=== PATIENT | male | born 1995 | race Caucasian/White ===

== ENCOUNTER 2018-08-16 09:12 | Emergency (ER) | payer OTHER ==
--- NOTE | 2018-08-16 09:25 | EDPHY ---
H & P Stated Complaint: L wrist vs black ice-yesterday Time Seen by Provider: 08/16/18 09:24 HPI/ROS: HPI: This is a 22-year-old male who presents with Chief Complaint: Left wrist injury on ice yesterday Location: Left wrist Quality: Injury Duration: Yesterday Signs and Symptoms: No bleeding, no radiation, no numbness, no weakness, no tingling, no incontinence,+ decreased range of motion, no swelling, + pain, no fever, + deformity Timing: Acute Severity: Moderate Context: Patient reports that he was drinking alcohol with his friends yesterday evening in [place] when he was running for the bus while wearing high heels and slipped on ice at the bus stop. He reports that he landed on the ulnar aspect of his wrist. He felt immediate, constant, moderate pain on the radial aspect of his left wrist. Patient is right-hand dominant. Patient reports that he iced it for bit late last night but has not iced it this morning. When he woke up he noted an obvious deformity in his left wrist with decreased range of motion. He reports that the pain shoots up into his left elbow. He denies any numbness. Denies LOC/head injury/neck pain/dizziness/ nausea/vomiting/amnesia. Modifying Factors: Ice Comment: ROS: A comprehensive 10 system review of systems is otherwise negative aside from elements mentioned in the history of present illness. MEDICAL/SURGICAL/SOCIAL HISTORY: Medical history: Generally healthy. Does not take any regular medications. Surgical history: Denies Social history: Tobacco and marijuana user. CONSTITUTIONAL: Well-developed, well-nourished young adult white male awake and alert, no obvious distress HEENT: Atraumatic and normocephalic. NECK: supple, no midline tenderness, flexion 45 degrees, extension 45 degrees, right and left lateral flexion 45 degrees. No meningismus. Cardiovascular: Normal S1/S2, regular rate, regular rhythm, without murmur rub or gallop. PULMONARY/CHEST: Symmetrical and nontender. Clear to auscultation bilaterally. Good air movement. No accessory muscle usage. ABDOMEN: Soft, nondistended, nontender. BACK: No midline tenderness, no paraspinous spasm, deep tendon reflexes 2/2 EXTREMITIES: 2/2 pulses, strength 5/5, left WRIST: Obvious deformity and deviation to the dorsal aspect; Extension to 30, flexion to 20, radial deviation to 10 degree, ulnar deviation to 10, no scaphoid tenderness, no tenderness over ulnar styloid, moderate tenderness over radial styloid. Able to wiggle all 5 fingers without difficulty. Left elbow has full range of motion. DIP/PIP/MCP flexion/extension intact with good light touch sensation. no deformities, no clubbing, no cyanosis or edema. NEUROLOGICAL: no focal neuro deficits. GCS 15. Light touch sensation intact. SKIN: Warm and dry, no erythema. no rash. Good capillary refill. Source: Patient Exam Limitations: No limitations - Personal History Current Tetanus/Diphtheria Vaccine: Unsure Current Tetanus Diphtheria and Acellular Pertussis (TDAP): Unsure - Medical/Surgical History Hx Asthma: No Hx Chronic Respiratory Disease: No Hx Diabetes: No Hx Cardiac Disease: No Hx Renal Disease: No Hx Cirrhosis: No Hx Alcoholism: No Hx HIV/AIDS: No Hx Splenectomy or Spleen Trauma: No Other PMH: denies, marijuana - Social History Smoking Status: Current some day smoker Constitutional: Initial Vital Signs Temperature (C) 36.7 C 08/16/18 09:15 Heart Rate 92 08/16/18 09:15 Respiratory Rate 16 08/16/18 09:15 Blood Pressure 128/63 H 08/16/18 09:15 O2 Sat (%) 97 08/16/18 09:15 O2 Delivery Mode Room Air Allergies/Adverse Reactions: codeine Allergy (Intermediate, Verified 08/16/18 09:19) Dyspnea Home Medications: Medication Instructions Recorded oxyCODONE/APAP 5/325 [Percocet 1 - 2 tab PO Q4H PRN #10 tab 08/16/18 5/325 (*)] Medical Decision Making - Diagnostics Imaging Results: Imaging Impressions Wrist X-Ray 08/16/18 09:22 Impression: Comminuted, displaced and angulated fracture of the distal left radius. Procedures: Procedure: Dislocation reduction. The dislocation of the left wrist was reduced using counter traction technique without complications. Post reduction the patient's neurovascular exam is normal. Post reduction CAM x-ray demonstrates reduction of the joint to the anatomic position. The procedure was performed by myself. Procedure: Splint placement. A sugar-tong Ortho Glass splint and sling were applied by the Emergency Room satellite tv technician and myself. After application of the splint I returned and re- examined the patient. The splint was adequately immobilizing the joint and distal to the splint the patient's circulation and sensation was intact. ED Course/Re-evaluation: Vital signs reviewed and stable upon arrival. Left wrist x-ray ordered and my read via bedside imaging shows comminuted, displaced radial fracture. Given Percocet, ibuprofen and ice pack applied Left wrist reduced and placed in sugar-tong Ortho Glass splint with sling Orthopedic follow-up and prescription for Percocet No signs of neurovascular compromise/tenting of skin/compartment syndrome/ extremities and joints examined above and below area of concern and are neurovascularly intact. This patient was seen under the supervision of my secondary supervising physician. I evaluated care for this patient independently. Discussed this patient with Dr. Harley who did not see the patient. Differential Diagnosis: Differential diagnosis includes but is not limited to scaphoid fracture, radial fracture, ulnar fracture, sprain, contusion, nerve injury. - Data Points Medications Given: Discontinued Medications Ibuprofen (Motrin) 800 mg PO EDNOW ONE Stop: 08/16/18 09:31 Last Admin: 08/16/18 09:32 Dose: 800 mg Oxycodone/Acetaminophen (Percocet 5/325) 1 tab PO EDNOW ONE Stop: 08/16/18 09:31 Last Admin: 08/16/18 09:32 Dose: 1 tab Departure - Departure Disposition: Home, Routine, Self-Care Clinical Impression: Closed fracture of distal end of left radius Qualifiers: Encounter type: initial encounter Fracture morphology: unspecified fracture morphology Qualified Code(s): S52.502A - Unspecified fracture of the lower end of left radius, initial encounter for closed fracture Condition: Good Instructions: Wrist Fracture in Adults (ED), How to Use a Sling (ED), ORIF of a Wrist Fracture (DC) Additional Instructions: Keep the splint dry and in place until seen by Orthopedics. You sling while out of bed to aid comfort. Take Tylenol 650 mg every 4 hours and/or Ibuprofen 600 mg every 8 hours with food as needed for pain. Use Percocet every 6 hours as needed for severe/break through pain. Do not use Tylenol and Percocet concomitantly. Apply ice for 30 minutes at a time; 2-3 times per day for the next 1-2 days. Follow up with Orthopedics in 5-7 days at which time they will evaluate and recommend with you if conservative management versus surgery is indicated. Return to the ER immediately if you experience new or worsening pain, discoloration, numbness, tingling, or any other symptoms that concern you. Referrals: [facility] [Other] - As per Instructions Héctor Jon MD [Medical Doctor] - As per Instructions Prescriptions: oxyCODONE/APAP 5/325 [Percocet 5/325 (*)] 1 - 2 tab PO Q4H PRN #10 tab PRN Reason: Pain, Severe
[2018-08-16] MEDS ORDERED: IBUPROFEN 800 MG TAB PO ONE (09:30)
[2018-08-16] MEDS ORDERED: OXYCODONE/APAP 5/325 TAB PO ONE (09:30)
[2018-08-16 10:21] VITALS: BP 122/84
== END 2018-08-16 10:23 | disposition home or self-care (01) ==
PROC: 0PSJXZZ Reposition Left Radius, External Approach (ICD-10-PCS; principal; 2018-08-16)
DX: S52.592A Other fractures of lower end of left radius, initial encounter for closed fracture (principal); W00.0XXA Fall on same level due to ice and snow, initial encounter; Y92.480 Sidewalk as the place of occurrence of the external cause; Y93.02 Activity, running
CPT/HCPCS: A4565